=== PATIENT | female | born 1975 | race Two or more races ===

== ENCOUNTER 2018-05-15 10:03 | Emergency (ER) | payer OTHER ==
[~2018-05-15] VITALS: Ht 154.9 cm; Wt 54.4 kg
[2018-05-15] MEDS ORDERED: METFORMIN HCL500 M1 ORAL (10:07)
--- NOTE | 2018-05-15 10:09 | NUR ---
ED Nurse Note: Pt BIBA from class s/p witnessed seizure. According to classmates, her seizure lasted 4-5mins. Pt presented in the ER post ictal A + O x3. Pt denies having hz of seizure. Hx of anemia and DM. Pt takes metformin for Dm but denies taking it this morning. Pt denies pain. Skin warm to touch.
[2018-05-15 10:10] VITALS: BP 123/69
--- NOTE | 2018-05-15 10:15 | NUR ---
ED Nurse Note: Blood has been collected and sent to lab.
[2018-05-15] MEDS ORDERED: LORazepam Inj 2mg/ml 1ml IV ONE (10:30)
[2018-05-15 10:36] LABS: BASOPHILS % (AUTO) 1.5 % (0.0-2.0); EOSINOPHILS % (AUTO) 1.4 % (0.0-3.0); HEMATOCRIT 37.1 % (37.0-47.0); HEMOGLOBIN 11.1 G/DL (12.0-16.0); LYMPHOCYTES % (AUTO) 32.9 % (20.0-45.0); MEAN CORPUSCULAR VOLUME 73 FL (80-99); MONOCYTES % (AUTO) 5.2 % (1.0-10.0); NEUTROPHILS % (AUTO) 59.1 % (45.0-75.0); PLATELET COUNT 347 K/UL (150-450); RED BLOOD COUNT 5.07 M/UL (4.20-5.40); RED CELL DISTRIBUTION WIDTH 16.9 % (11.6-14.8); WHITE BLOOD COUNT 8.2 K/UL (4.8-10.8)
--- NOTE | 2018-05-15 10:43 | NUR ---
ED Nurse Note: Pt went down to CT.
--- NOTE | 2018-05-15 10:47 | Emergency Room Report ---
History of Present Illness General Chief Complaint: Seizure Source: Patient, EMS Present Illness HPI 43-year-old female with a history of type 2 diabetes on metformin, and anemia, presents with seizure versus syncope, brought in by EMS, was witnessed by bystanders in classroom where this occurred, patient was in her seat and then became unresponsive and had questionable seizure-like activity versus just unresponsiveness. It is unclear based on EMS report whether or not she had tonic-clonic activity or just unresponsiveness. Patient currently feels fine and does not recall exactly what happened. She reports nothing like this is ever happened before that she can think of. Allergies: Coded Allergies: UNABLE TO ASSESS (Unverified , 05/15/18) Patient History Past Medical History: see triage record Last Menstrual Period: unknown Reviewed Nursing Documentation: PMH: Agreed; PSxH: Agreed Nursing Documentation-PMH Past Medical History: No History, Except For Hx Diabetes: Yes Review of Systems All Other Systems: negative except mentioned in HPI Physical Exam Vital Signs Date Time Temp Pulse Resp B/P (MAP) Pulse Ox O2 Delivery O2 Flow Rate FiO2 05/15/18 09:58 98.1 86 16 124/75 99 Room Air 05/15/18 10:10 100 Sp02 EP Interpretation: reviewed, normal General Appearance: no apparent distress, alert, non-toxic Head: normocephalic Eyes: bilateral eye normal inspection, bilateral eye PERRL, bilateral eye EOMI ENT: normal ENT inspection, hearing grossly normal, normal pharynx, no angioedema, normal voice, moist mucus membranes Neck: normal inspection, full range of motion, supple, supple/symm/no masses Respiratory: chest non-tender, lungs clear, normal breath sounds, chest symmetrical, palpation of chest normal Cardiovascular #1: normal peripheral pulses, regular rate, rhythm, no edema, no gallop, no JVD, no murmur, no rub Cardiovascular #2: 2+ radial (R), 2+ radial (L) Gastrointestinal: normal inspection, non tender, soft, no mass, no guarding, no rebound Rectal: deferred Genitourinary: normal inspection, no CVA tenderness Musculoskeletal: back normal, gait/station normal, normal range of motion, non- tender, no calf tenderness, Svetlana's Sign negative Neurologic: alert, responsive, environmental services director III-XII nml as tested, motor strength/tone normal, sensory intact, speech normal Psychiatric: judgement/insight normal, memory normal, mood/affect normal, no suicidal/homicidal ideation Skin: normal color, no rash, warm/dry, normal turgor Lymphatic: no adenopathy Medical Decision Making Diagnostic Impression: Primary Impression: Loss of consciousness Additional Impression: Brain mass ER Course A lapse of consciousness form was submitted to the [facility]. Patient is well- appearing. Unclear as to whether she had a seizure vs. syncopal episode. Patient found to have a brain mass, 5cm, in R basal ganglia with edema and mass effect with 6mm midline shift WIll give 10mg IV decadron, tx to [facility]; patient with elevated glucose, mild ketosis, will give NSS and IV insulin EKG Diagnostic Results EKG Time: 10:10 EP Interpretation: no stemi Rate: normal Rhythm: NSR ST Segments: no acute changes Rhythm Strip Diag. Results Rhythm Strip Time: 10:10 EP Interpretation: yes Rate: 72 Rhythm: NSR, no PVC's, no ectopy Chest X-Ray Diagnostic Results Chest X-Ray Diagnostic Results : Chest X-Ray Ordered: Yes # of Views/Limited/Complete: 1 View Indication: Other - syncope vs seizure Interpretation: no consolidation, no effusion, no pneumothorax, no acute cardiopulmonary disease Impression: No acute disease Electronically Signed by: Rosa Maria Mosqueda MD Last Vital Signs Date Time Temp Pulse Resp B/P (MAP) Pulse Ox O2 Delivery O2 Flow Rate FiO2 05/15/18 10:10 78 16 Room Air 100 05/15/18 10:10 98.0 123/69 100 Disposition: HOME, SELF-CARE Condition: Stable ROSA MARIA MOSQUEDA M.D May 15, 2018 10:47
[2018-05-15 10:58] LABS: ANION GAP 16 mmol/L (5-15); BLOOD UREA NITROGEN 8 mg/dL (7-18); CALCIUM 8.4 MG/DL (8.5-10.1); CARBON DIOXIDE 19 MMOL/L (21-32); CHLORIDE 98 MMOL/L (98-107); CREATININE 0.9 MG/DL (0.55-1.30); POTASSIUM 3.8 MMOL/L (3.5-5.1); SODIUM 133 MMOL/L (136-145)
--- NOTE | 2018-05-15 10:59 | NUR ---
ED Nurse Note: Pt back from CT.
[2018-05-15 11:05] LABS: ALANINE AMINOTRANSFERASE 18 U/L (12-78); ALBUMIN 3.5 G/DL (3.4-5.0); ALBUMIN/GLOBULIN RATIO 0.7 (1.0-2.7); ALKALINE PHOSPHATASE 156 U/L (46-116); ASPARTATE AMINO TRANSFERASE 13 U/L (15-37); BILIRUBIN,TOTAL 0.3 MG/DL (0.2-1.0); CREATINE KINASE 68 U/L (26-308)
[2018-05-15 11:29] LABS: APPEARANCE,URINE CLEAR; BILIRUBIN, URINE NEGATIVE (NEGATIVE); COLOR,URINE PALE YELLOW; GLUCOSE, URINE (UA) 4+ (NEGATIVE); KETONES,URINE 1+ (NEGATIVE); LEUKOCYTE ESTERASE ,URINE NEGATIVE (NEGATIVE); NITRITE,URINE NEGATIVE (NEGATIVE); PH,URINE 5 (4.5-8.0); PROTEIN,URINE 2+ (NEGATIVE); UROBILINOGEN,URINE NORMAL MG/DL (0.0-1.0)
[2018-05-15 12:04] VITALS: BP 110/82
[2018-05-15] MEDS ORDERED: Dexamethasone 4mg/ml vial IVP ONE (12:45)
[2018-05-15] MEDS ORDERED: Insulin Human Regular 100units/ml 3ml IV ONE (12:45)
--- NOTE | 2018-05-15 13:13 | NUR ---
ED Nurse Note: Patient sitting in bed, semi-guzman position. Patient remained awake, alert, oriented x 3. Able to follow commands. Regular, unlabored breathing noted. Seizure precaution maintained. Bed in lowest position.
[2018-05-15 14:33] VITALS: BP 101/58
[2018-05-15 16:39] VITALS: BP 105/51
--- NOTE | 2018-05-15 16:58 | NUR ---
ED Nurse Note: Gave telephone report to TRISH Barreto from [facility] and [facility].
[2018-05-15 17:07] VITALS: BP 104/61
--- NOTE | 2018-05-15 17:08 | NUR ---
ED Nurse Note: Pt transferred to [facility] via [facility]. No acute distress noted. Left ER w/ all belongings.
--- NOTE | 2018-05-15 19:15 | Diagnostic Imaging Report ---
Indication: Seizure Technique: Contiguous 5 mm thick transaxial imaging of the head obtained in a Siemens Sensation [address] scanner. Soft tissue and bone windows generated. Automatic Exposure Control was utilized. Total Dose length Product (DLP): 1291.[address] Dose Index Volume (CTDIvol): 70.38 mGy Comparison: none Findings: There is a large hyperdense mass demonstrated within the right basal ganglia region. There is associated right frontal vasogenic edema. Laterally the mass extends into the insular cortex creating mass effect on the sylvian fissure. Medially, there is compression of the right lateral ventricle and mild right to left midline shift estimated at about 6 mm. Findings are concerning for underlying neoplasm. Further evaluation with MRI with and without gadolinium is recommended. There is no hydrocephalus. The basal cisterns appear normal. There is no evidence of acute hemorrhage. Osseous structures appear unremarkable. 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 Associated vasogenic edema and mass effect as described above. Recommend MRI with gadolinium for further evaluation The CT scanner at [facility] is accredited by the [employer] and the scans are performed using dose optimization techniques as appropriate to a performed exam including Automatic Exposure control.
--- NOTE | 2018-05-15 19:15 | Diagnostic Imaging Report ---
Indication: Dyspnea Comparison: None A single view chest radiograph was obtained. Findings: Cardiomediastinal appearance is within normal limits for age. The lungs are clear. Pulmonary vascularity is appropriate. The diaphragmatic contour is smooth and costophrenic angles are sharp. No pleural effusions are identified. The bones are unremarkable. Impression: No acute findings
--- NOTE | 2018-05-16 15:06 | Cardiology Report ---
APPROVED REPORT EKG Measurement Heart [id number] Normal sinus rhythm Minimal voltage criteria for LVH, may be normal variant Nonspecific T wave abnormality Abnormal ECG
== END 2018-05-15 17:09 | disposition home or self-care (01) ==
LOC: EDBD 10:03 → EMR 10:35
DX: R55 Syncope and collapse (principal); G93.9 Disorder of brain, unspecified; E11.9 Type 2 diabetes mellitus without complications; Z79.84 Long term (current) use of oral hypoglycemic drugs
CPT/HCPCS: 36415; 70450; 71045; 80053; 80185; 80307; 80329; 81003; 81025; 82550; 85025; 93005; 96361; 96374; 96375; 99284; J1100; J1815